=== PATIENT | female | born 1935 | race American Indian/Alaskan Native ===

== ENCOUNTER 2017-10-04 10:31 | Inpatient (IN) | payer MEDICAID, OTHER ==
[2017-10-04] MEDS ORDERED: MORPHINE IV ONE (11:29)
[2017-10-04] MEDS ORDERED: ZOFRAN IV ONE (11:29)
[2017-10-04] MEDS ORDERED: NACL 0.9% 1000 ML 1,000 ML IV ONE (11:30)
[2017-10-04 12:11] LABS: Basophils % (Auto) 0.1 % (0.0-1.8); Hematocrit 36.3 % (30.3-42.9); Hemoglobin 11.9 gm/dl (10.1-14.3); Lymphocytes # (Auto) 1.4 K/mm3 (1.2-5.4); Mean Corpuscular HGB Conc 33 % (30-34); Mean Corpuscular Hemoglobin 31 pg (28-32); Mean Corpuscular Volume 94 fl (79-97); Monocytes # (Auto) 0.8 K/mm3 (0.0-0.8); Monocytes % (Auto) 7.5 % (0.0-7.3); Platelet Count 233 K/mm3 (140-440); Red Blood Count 3.87 M/mm3 (3.65-5.03); Red Cell Distribution Width 13.6 % (13.2-15.2)
[2017-10-04 12:21] LABS: INR 1.04 (0.87-1.13)
[2017-10-04 12:22] LABS: Partial Thromboplastin Time 25.1 Sec. (24.2-36.6)
[2017-10-04 12:25] LABS: Alanine Aminotransferase 12 units/L (7-56); Albumin 3.8 g/dL (3.9-5); BUN/Creatinine Ratio 20; Bilirubin,Direct 0.2 mg/dL (0-0.2); Blood Urea Nitrogen 14 mg/dL (7-17); Calcium 8.9 mg/dL (8.4-10.2); Hemolysis Index 7
--- NOTE | 2017-10-04 13:19 | XRay Report ---
Portable chest: Hypertension. There is a calcified nodule in the left lower lobe. Mildly increased interstitial markings are noted throughout both lungs. The aorta is tortuous. The heart is normal in size. No vascular congestion. No prior exam for comparison. Impression: Chronic changes. No acute findings. Right hip: Fall, pain. There is an intratrochanteric fracture with scattered bony fragments and increased angulation. The femoral head is well-positioned. No underlying defect identified. Impression: Fractured right femur.
--- NOTE | 2017-10-04 14:28 | Emergency Department Report ---
ED General Adult HPI - General Chief complaint: Fall Stated complaint: FALL Time Seen by Provider: 10/04/17 11:07 Source: patient, family Mode of arrival: Wheelchair Limitations: Language Barrier - History of Present Illness Initial comments: 82-year-old female with missed step in her bedroom yesterday. She was unable to weight-bear today so her family brought her for evaluation. She is complaining of pain in the right hip area. She's had no prior hip surgery. As far as I can tell this was a mechanical ground-level fall. -: Gradual, days(s) Location: right, lower extremity Quality: aching Consistency: intermittent Improves with: none Worsens with: movement Associated Symptoms: denies other symptoms - Related Data Home Medications Medication Instructions Recorded Confirmed Last Taken No Known Home Medications [No 10/04/17 10/04/17 Unknown Reported Home Medications] Allergies Allergy/AdvReac Type Severity Reaction Status Date / Time No Known Allergies Allergy Verified 10/04/17 10:38 ED Review of Systems ROS: Stated complaint: FALL Other details as noted in HPI Comment: All other systems reviewed and negative (Limited secondary to language age and condition. Family does not refer any other interceding symptoms) ED Past Medical Hx - Past Medical History Additional medical history: circulation - Social History Smoking Status: Never Smoker Substance Use Type: None - Medications Home Medications: Home Medications Medication Instructions Recorded Confirmed Last Taken Type No Known Home Medications [No 10/04/17 10/04/17 Unknown History Reported Home Medications] ED Physical Exam - General Limitations: Language Barrier (family translates) General appearance: alert, in no apparent distress - Head Head exam: Present: atraumatic, normocephalic - Eye Eye exam: Present: normal appearance, PERRL, EOMI. Absent: scleral icterus - ENT ENT exam: Present: mucous membranes moist - Neck Neck exam: Present: normal inspection. Absent: tenderness, meningismus - Respiratory Respiratory exam: Present: normal lung sounds bilaterally. Absent: respiratory distress - Cardiovascular Cardiovascular Exam: Present: regular rate, normal rhythm. Absent: systolic murmur, diastolic murmur, rubs, gallop - GI/Abdominal GI/Abdominal exam: Present: soft, normal bowel sounds. Absent: distended, tenderness, guarding, rebound, rigid - Extremities Exam Extremities exam: Present: tenderness (right hip shortening and external rotation of the leg noted. No other deformity.) - Back Exam Back exam: Present: normal inspection - Neurological Exam Neurological exam: Present: alert, oriented X3, CN II-XII intact. Absent: motor sensory deficit - Psychiatric Psychiatric exam: Present: normal affect, normal mood - Skin Skin exam: Present: warm, dry, intact, normal color. Absent: rash ED Course Vital Signs 10/04/17 10/04/17 10/04/17 10:39 10:46 11:00 Temperature 98.3 F Pulse Rate 80 72 Respiratory 16 17 Rate Blood Pressure 143/73 142/58 O2 Sat by Pulse 100 100 97 Oximetry 10/04/17 10/04/17 10/04/17 11:31 12:00 12:30 Temperature Pulse Rate 72 72 69 Respiratory 17 16 15 Rate Blood Pressure 138/49 138/58 130/56 O2 Sat by Pulse 99 98 95 Oximetry 10/04/17 10/04/17 10/04/17 13:00 13:30 14:00 Temperature Pulse Rate 67 73 77 Respiratory 19 15 17 Rate Blood Pressure 132/52 127/54 136/58 O2 Sat by Pulse 98 96 94 Oximetry - Reevaluation(s) Reevaluation #1: The patient was admitted by hospitalist Dr. Briones and has been seen by the orthopedist Dr. Seay. 10/04/17 14:39 Reevaluation #2: Potassium was 5.3. I'm going to give the patient IV fluids and repeat. Further care per hospitalist. 10/04/17 14:42 ED Medical Decision Making - Lab Data Result diagrams: 10/04/17 11:39 10/04/17 11:39 Laboratory Results - last 24 hr 10/04/17 10/04/17 10/04/17 11:39 11:39 11:39 WBC 11.3 H RBC 3.87 Hgb 11.9 Hct 36.3 MCV 94 MCH 31 MCHC 33 RDW 13.6 Plt Count 233 Lymph % (Auto) 12.0 L Harney % (Auto) 7.5 H Eos % (Auto) 0.0 Baso % (Auto) 0.1 Lymph # 1.4 Harney # 0.8 Eos # 0.0 Baso # 0.0 Seg Neutrophils % 80.4 H Seg Neutrophils # 9.1 H PT 14.1 INR 1.04 APTT 25.1 Sodium 133 L Potassium 5.3 H Chloride 95.7 L Carbon Dioxide 24 Anion Gap 19 BUN 14 Creatinine 0.7 Estimated GFR > 60 BUN/Creatinine Ratio 20 Glucose 273 H Calcium 8.9 Total Bilirubin 0.90 Direct Bilirubin 0.2 Indirect Bilirubin 0.7 AST 16 ALT 12 Alkaline Phosphatase 52 NT-Pro-B Natriuret Pep 84.05 Total Protein 6.8 Albumin 3.8 L Albumin/Globulin Ratio 1.3 Blood Type Antibody Screen 10/04/17 11:39 WBC RBC Hgb Hct MCV MCH MCHC RDW Plt Count Lymph % (Auto) Harney % (Auto) Eos % (Auto) Baso % (Auto) Lymph # Harney # Eos # Baso # Seg Neutrophils % Seg Neutrophils # PT INR APTT Sodium Potassium Chloride Carbon Dioxide Anion Gap BUN Creatinine Estimated GFR BUN/Creatinine Ratio Glucose Calcium Total Bilirubin Direct Bilirubin Indirect Bilirubin AST ALT Alkaline Phosphatase NT-Pro-B Natriuret Pep Total Protein Albumin Albumin/Globulin Ratio Blood Type A POSITIVE Antibody Screen Negative - Radiology Data Radiology results: report reviewed (displaced intertrochanteric hip fracture on right, chest x-ray process) Critical care attestation.: If time is entered above; I have spent that time in minutes in the direct care of this critically ill patient, excluding procedure time. ED Disposition Clinical Impression: Hyperkalemia Intertrochanteric fracture of right hip Qualifiers: Encounter type: initial encounter Fracture type: closed Fracture alignment: displaced Qualified Code(s): S72.141A - Displaced intertrochanteric fracture of right femur, initial encounter for closed fracture Disposition: 09 OP ADMIT IP TO THIS HOSP Is pt being admited?: Yes Does the pt Need Aspirin: Yes Condition: Stable Time of Disposition: 14:43
--- NOTE | 2017-10-04 15:39 | Consultation ---
History of Present Illness - [facility] Consult date: 10/04/17 Consult reason: fracture History of present illness: 82-year-old female who complains of right hip pain after a fall at home yesterday patient states she was in the bedroom and had a misstep causing her to fall onto her right lower extremity, currently patient states she is unable to put any weight onto her right leg she was brought to the emergency room by her family x-rays were taken revealing a displaced right intertrochanteric hip fracture. There are no other complaints noted Medications and Allergies Allergies Allergy/AdvReac Type Severity Reaction Status Date / Time No Known Allergies Allergy Verified 10/04/17 10:38 Home Medications Medication Instructions Recorded Confirmed Last Taken Type No Known Home Medications [No 10/04/17 10/04/17 Unknown History Reported Home Medications] Active Meds: Active Medications Aspirin (Baby Aspirin) 81 mg PO ONCE ONE Stop: 10/05/17 14:44 Sodium Chloride (Nacl 0.9% 1000 Ml) 1,000 mls @ 125 mls/hr IV ONCE ONE Stop: 10/04/17 19:29 Physical Examination - Physical exam Narrative exam: On physical examination the patient was noted to have moderate swelling in the proximal thigh she was tender on palpation passer range of motion is diminished secondary to pain there is apparent shortening with external rotation of the extremity there is good capillary refill distal neurovascular was intact Plain x-rays from the emergency room were reviewed by me and show a displaced right intertrochanteric hip fracture. Eyes: PERRL ENT: Positive: clear oral mucosa Respiratory effort: normal Respiratory: bilateral: CTA Rhythm: regular Heart Sounds: Positive: S1 & S2 General gastrointestinal: Positive: soft, non-tender, non-distended, normal bowel sounds Integumentary: clear, warm, dry Neurologic: Positive: CNII-XII intact, moves all extremities, gait normal. Negative: focal deficits - Cervical Spine Neck pain: none Tenderness with palpation: none Full ROM: yes ROM: flexion: normal ROM: extension: normal ROM: rotation right: normal ROM: rotation left: normal ROM: lateral flexion right: normal ROM: lateral flexion left: normal - Lumbar Spine Back pain: none Tenderness with palpation: none Appearance: normal Full ROM: yes ROM: flexion: normal ROM: extension: normal ROM: rotation right: normal ROM: rotation left: normal ROM: lateral flexion right: normal ROM: lateral flexion left: normal Assessment and Plan Right intertrochanteric fracture hip with displacement Recommendations I have recommended closed reduction and insertion of intramedullary nail right femur
[2017-10-04 15:53] LABS: Bilirubin,Urine NEG (Negative); Blood,Urine SM (Negative); Color,Urine Yellow (Yellow); Protein,Urine <15 mg/dL mg/dL (Negative); Urobilinogen,Urine < 2.0 mg/dL (<2.0); WBC,Urine < 1.0 /HPF (0.0-6.0)
[2017-10-04 16:07] LABS: BUN/Creatinine Ratio 18; Blood Urea Nitrogen 11 mg/dL (7-17); Calcium 8.3 mg/dL (8.4-10.2); Hemolysis Index 2
[2017-10-04] MEDS ORDERED: SODIUM CHLORIDE FLUSH SYRINGE 10 ML IV PRN (16:10)
[2017-10-04] MEDS ORDERED: DILAUDID IV PRN (16:10)
[2017-10-04] MEDS ORDERED: PERCOCET 5/325 PO PRN (16:10)
[2017-10-04] MEDS ORDERED: REGLAN IV PRN (16:10)
[2017-10-04] MEDS ORDERED: ZOFRAN IV PRN (16:10)
[2017-10-04] MEDS ORDERED: MILK OF MAGNESIA PO PRN (16:10)
[2017-10-04] MEDS ORDERED: AMBIEN PO PRN (16:10)
--- NOTE | 2017-10-04 16:10 | History and Physical Report ---
History of Present Illness Date of examination: 10/04/17 Date of admission: 10/04/17 12:24 Chief complaint: CC Pain Rt Hip History of present illness: History of Present Illness: 82-year-old female missed a step in her bedroom yesterday. She was unable to weight-bear today so her family brought her for evaluation. She is complaining of pain in the right hip area. She's had no prior hip surgery. This was a mechanical ground-level fall. Paion is .Exacerbated by minimal movement in lower extremities Past Medical History Additional medical history: circulation - Social History Smoking Status: Never Smoker Substance Use Type: None Family History no Surgical History N/a - Medications Home Medications: Home Medications Medication Instructions Recorded Confirmed Last Taken Type No Known Home Medications [No 10/04/17 10/04/17 Unknown History Reported Home Medications] Review of Systems ROS: Stated complaint: FALL Other details as noted in HPI Comment: All other systems reviewed and negative (Limited secondary to language age and condition. Family does not refer any other interceding symptoms) Medications and Allergies Allergies Allergy/AdvReac Type Severity Reaction Status Date / Time No Known Allergies Allergy Verified 10/04/17 10:38 Home Medications Medication Instructions Recorded Confirmed Last Taken Type Metformin HCl 500 mg PO BID 10/04/17 10/04/17 Unknown History Simvastatin 20 mg PO DAILY 10/04/17 10/04/17 Unknown History Active Meds: Active Medications Aspirin (Baby Aspirin) 81 mg PO ONCE ONE Stop: 10/05/17 14:44 Sodium Chloride (Nacl 0.9% 1000 Ml) 1,000 mls @ 125 mls/hr IV ONCE ONE Stop: 10/04/17 19:29 Exam - Constitutional Vitals: Temp Pulse Resp BP Pulse Ox 98.3 F 77 17 136/58 94 10/04/17 10:39 10/04/17 14:00 10/04/17 14:00 10/04/17 14:00 10/04/17 14:00 General appearance: Present: mild distress, well-nourished - EENT Eyes: Present: PERRL ENT: hearing intact, clear oral mucosa - Neck Neck: Present: supple, normal ROM - Respiratory Respiratory effort: normal Respiratory: bilateral: CTA - Cardiovascular Heart rate: 80 Rhythm: regular Heart Sounds: Present: S1 & S2. Absent: rub, click - Extremities Extremities: no ischemia, pulses intact, pulses symmetrical, No edema, abnormal Extremity abnormal: other (RLE Abducted and externally rotated) Peripheral Pulses: within normal limits - Abdominal General gastrointestinal: Present: soft, non-tender, non-distended, normal bowel sounds Female genitourinary: Present: normal - Rectal Rectal Exam: deferred - Integumentary Integumentary: Present: clear, warm, dry - Musculoskeletal Musculoskeletal: gait normal, strength equal bilaterally - Psychiatric Psychiatric: appropriate mood/affect, intact judgment & insight - Neurologic Neurologic: CNII-XII intact, moves all extremities Results - Labs CBC & Chem 7: 10/04/17 11:39 10/04/17 15:03 Labs: Laboratory Last Values WBC 11.3 K/mm3 (4.5-11.0) H 10/04/17 11:39 RBC 3.87 M/mm3 (3.65-5.03) 10/04/17 11:39 Hgb 11.9 gm/dl (10.1-14.3) 10/04/17 11:39 Hct 36.3 % (30.3-42.9) 10/04/17 11:39 MCV 94 fl (79-97) 10/04/17 11:39 MCH 31 pg (28-32) 10/04/17 11:39 MCHC 33 % (30-34) 10/04/17 11:39 RDW 13.6 % (13.2-15.2) 10/04/17 11:39 Plt Count 233 K/mm3 (140-440) 10/04/17 11:39 Lymph % (Auto) 12.0 % (13.4-35.0) L 10/04/17 11:39 [place] % (Auto) 7.5 % (0.0-7.3) H 10/04/17 11:39 Eos % (Auto) 0.0 % (0.0-4.3) 10/04/17 11:39 Baso % (Auto) 0.1 % (0.0-1.8) 10/04/17 11:39 Lymph # 1.4 K/mm3 (1.2-5.4) 10/04/17 11:39 [place] # 0.8 K/mm3 (0.0-0.8) 10/04/17 11:39 Eos # 0.0 K/mm3 (0.0-0.4) 10/04/17 11:39 Baso # 0.0 K/mm3 (0.0-0.1) 10/04/17 11:39 Seg Neutrophils % 80.4 % (40.0-70.0) H 10/04/17 11:39 Seg Neutrophils # 9.1 K/mm3 (1.8-7.7) H 10/04/17 11:39 PT 14.1 Sec. (12.2-14.9) 10/04/17 11:39 INR 1.04 (0.87-1.13) 10/04/17 11:39 APTT 25.1 Sec. (24.2-36.6) 10/04/17 11:39 Sodium 135 mmol/L (137-145) L 10/04/17 15:03 Potassium 4.7 mmol/L (3.6-5.0) 10/04/17 15:03 Chloride 96.8 mmol/L (98-107) L 10/04/17 15:03 Carbon Dioxide 23 mmol/L (22-30) 10/04/17 15:03 Anion Gap 20 mmol/L 10/04/17 15:03 BUN 11 mg/dL (7-17) 10/04/17 15:03 Creatinine 0.6 mg/dL (0.7-1.2) L 10/04/17 15:03 Estimated GFR > 60 ml/min 10/04/17 15:03 BUN/Creatinine Ratio 18 % 10/04/17 15:03 Glucose 211 mg/dL (65-100) H 10/04/17 15:03 Calcium 8.3 mg/dL (8.4-10.2) L 10/04/17 15:03 Total Bilirubin 0.90 mg/dL (0.1-1.2) 10/04/17 11:39 Direct Bilirubin 0.2 mg/dL (0-0.2) 10/04/17 11:39 Indirect Bilirubin 0.7 mg/dL 10/04/17 11:39 AST 16 units/L (5-40) 10/04/17 11:39 ALT 12 units/L (7-56) 10/04/17 11:39 Alkaline Phosphatase 52 units/L (35-129) 10/04/17 11:39 NT-Pro-B Natriuret Pep 84.05 pg/mL (0-900) 10/04/17 11:39 Total Protein 6.8 g/dL (6.3-8.2) 10/04/17 11:39 Albumin 3.8 g/dL (3.9-5) L 10/04/17 11:39 Albumin/Globulin Ratio 1.3 % 10/04/17 11:39 Urine Color Yellow (Yellow) 10/04/17 15:08 Urine Turbidity Clear (Clear) 10/04/17 15:08 Urine pH 7.0 (5.0-7.0) 10/04/17 15:08 Ur Specific [place] 1.009 (1.003-1.030) 10/04/17 15:08 Urine Protein <15 mg/dl mg/dL (Negative) 10/04/17 15:08 Urine Glucose (UA) 150 mg/dL (Negative) 10/04/17 15:08 Urine Ketones 20 mg/dL (Negative) 10/04/17 15:08 Urine Blood Sm (Negative) 10/04/17 15:08 Urine Nitrite Neg (Negative) 10/04/17 15:08 Urine Bilirubin Neg (Negative) 10/04/17 15:08 Urine Urobilinogen < 2.0 mg/dL (<2.0) 10/04/17 15:08 Ur Leukocyte Esterase Tr (Negative) 10/04/17 15:08 Urine WBC (Auto) < 1.0 /HPF (0.0-6.0) 10/04/17 15:08 Urine RBC (Auto) 1.0 /HPF (0.0-6.0) 10/04/17 15:08 Blood Type A POSITIVE 10/04/17 11:39 Antibody Screen Negative 10/04/17 11:39 Short CBC 10/04/17 Range/Units 11:39 WBC 11.3 H (4.5-11.0) K/mm3 Hgb 11.9 (10.1-14.3) gm/dl Hct 36.3 (30.3-42.9) % Plt Count 233 (140-440) K/mm3 BMP 10/04/17 10/04/17 11:39 15:03 Sodium 133 L 135 L Potassium 5.3 H 4.7 Chloride 95.7 L 96.8 L Carbon Dioxide 24 23 BUN 14 11 Creatinine 0.7 0.6 L Glucose 273 H 211 H Calcium 8.9 8.3 L Liver Function 10/04/17 Range/Units 11:39 Total Bilirubin 0.90 (0.1-1.2) mg/dL Direct Bilirubin 0.2 (0-0.2) mg/dL AST 16 (5-40) units/L ALT 12 (7-56) units/L Alkaline Phosphatase 52 (35-129) units/L Albumin 3.8 L (3.9-5) g/dL Urine 10/04/17 Range/Units 15:08 Urine Color Yellow (Yellow) Urine pH 7.0 (5.0-7.0) Ur Specific [place] 1.009 (1.003-1.030) Urine Protein <15 mg/dl (Negative) mg/dL Urine Glucose (UA) 150 (Negative) mg/dL - Imaging and Cardiology EKG: report reviewed Chest x-ray: report reviewed Imaging and Cardiology: Rt Hip Xray There is an intratrochanteric fracture with scattered bony fragments and increased angulation. The femoral head is well-positioned. No underlying defect identified. Impression: Fractured right femur Assessment and Plan Advance Directives: Yes (Full code) Plan of care discussed with patient/family: Yes - Patient Problems (1) Intertrochanteric fracture of right hip Current Visit: Yes Status: Acute Qualifiers: Encounter type: initial encounter Fracture type: closed Fracture alignment: displaced Qualified Code(s): S72.141A - Displaced intertrochanteric fracture of right femur, initial encounter for closed fracture Plan to address problem: ORIF by Dr Seay tomorrow (2) Hyperkalemia Current Visit: Yes Status: Acute Plan to address problem: Corrected (3) Hyponatremia Current Visit: Yes Status: Acute Plan to address problem: Mild.Should correct with IV NS (4) New onset type 2 diabetes mellitus Current Visit: Yes Status: Acute Plan to address problem: No history of Diabetes. A1c 8.0 Coverage for now Glimepride 1 mg po qd initiated (5) DVT prophylaxis Current Visit: Yes Status: Acute Plan to address problem: On SCD's
[2017-10-04] MEDS: PEPCID IV SCH (18:31)
[2017-10-04] MEDS: MORPHINE IV PRN (21:12)
[2017-10-04] MEDS ORDERED: PEPCID IV SCH (22:00)
[2017-10-05] MEDS: SODIUM CHLORIDE FLUSH SYRINGE 10 ML IV SCH ×4 (00:04→23:03)
[2017-10-05] MEDS: MORPHINE IV PRN (05:21)
[2017-10-05] MEDS: PEPCID IV SCH ×2 (08:28→09:48)
[2017-10-05] MEDS: HumaLOG SUB-Q SCH ×4 (08:29→23:31)
[2017-10-05] MEDS: NACL 0.9% 1000 ML 1,000 ML IV SCH ×2 (09:59→18:45)
[2017-10-05] MEDS ORDERED: DIPRIVAN 10 MG/ML IV ONE (11:53)
[2017-10-05] MEDS ORDERED: SUBLIMAZE ONE (11:59)
[2017-10-05] MEDS ORDERED: MORPHINE ONE (12:03)
[2017-10-05] MEDS ORDERED: MARCAINE 0.5% 0 ML INFILTRATI ONE (12:03)
[2017-10-05] MEDS ORDERED: TORADOL ONE (12:03)
[2017-10-05] MEDS ORDERED: NACL 0.9% 0 ML ONE (12:05)
[2017-10-05] MEDS ORDERED: NACL 0.9% IR ONE (12:47)
[2017-10-05] MEDS ORDERED: NARCAN 0.4 MG/1 ML IV PRN (12:52)
[2017-10-05] MEDS ORDERED: DILAUDID IV PRN (12:52)
[2017-10-05] MEDS ORDERED: DEMEROL IV PRN (12:52)
--- NOTE | 2017-10-05 12:55 | Anesthesia Consultation ---
Anesthesia Consult and Med Hx Date of service: 10/05/17 - Airway Anesthetic Teeth Evaluation: Poor, Chipped ROM Head & Neck: Adequate Mental/Hyoid Distance: Adequate Mallampati Class: Class I Intubation Access Assessment: Good - Pulmonary Exam CTA: Yes - Cardiac Exam Cardiac Exam: RRR - Pre-Operative Health Status ASA Pre-Surgery Classification: ASA2 Proposed Anesthetic Plan: General - Pre-Anesthesia Comment Pre-Anesthesia Comments: Patient tolerates >6 METS. works on [employer]. No chest pain or SOB. fell after losing footing at home. No syncopal on central events precipitated event. No cold or flu. No h/o N/V after anesthesia. No h/ o anesthetic complications - Pulmonary Hx Smoking: No Hx Asthma: No Hx Respiratory Symptoms: No SOB: No COPD: No Home Oxygen Therapy: No - Cardiovascular System Hx Hypertension: Yes Hx Coronary Artery Disease: No Hx Heart Attack/AMI: No Hx Angina: No Hx Pacemaker: No Hx Internal Defibrillator: No - Central Nervous System Hx Neuromuscular Disorder: No Hx Seizures: No CVA: No - Gastrointestinal Hx Gastroesophageal Reflux Disease: No - Endocrine Hx Renal Disease: No Hx Non-Insulin Dependent Diabetes: Yes
--- NOTE | 2017-10-05 12:55 | Anesthesia Day of Surgery ---
Anesthesia Day of Surgery - Day of Surgery Patient Examined: Yes Patient H&P Reviewed: Yes Patient is NPO: Yes
[2017-10-05] MEDS ORDERED: ZEMURON IV ONE (14:20)
[2017-10-05] MEDS ORDERED: ROBINUL ONE (14:20)
[2017-10-05] MEDS ORDERED: NEOSTIGMINE ONE (14:20)
[2017-10-05] MEDS ORDERED: XYLOCAINE MPF 2% ONE (14:20)
[2017-10-05] MEDS ORDERED: ZOFRAN ONE (14:20)
[2017-10-05] MEDS ORDERED: BABY ASPIRIN PO ONE (14:43)
--- NOTE | 2017-10-05 14:48 | Procedure Note ---
Date of procedure: 10/05/17 Pre-op diagnosis: displaced right intertrochanteric hip fracture Post-op diagnosis: same Procedure: Closed reduction and insertion of intramedullary nail right femur Procedure The patient was brought to the operating room on a hospital bed she was then intubated and transferred to the Zeina table in the supine position the right lower extremity was placed in longitudinal traction. The hip fracture site was reduced in both the AP and lateral planes using C-arm fluoroscope. Next the right hip and thigh were prepped and draped in the usual sterile fashion. A timeout procedure was done to identify the patient and the correct operative site. An incision was made along the proximal aspect of the right femur this was taken down sharply through skin and subcutaneous using a Garcia elevator and digital palpation the greater tuberosity was palpated A large a was used to create our entry portal again using C-arm and the entry site was visualized next a guide pin was inserted into the proximal medullary canal was then overreamed followed by insertion of a ball-tip guidewire. Measuring the length of our intramedullary yakov a 360 mm length by 11 mm diameter yakov was chosen and this was followed by reaming of the proximal intramedullary canals next the intramedullary yakov nail was inserted in antegrade fashion down the proximal femur under sterile C-arm visualization. Using the targeting device the helical blade was inserted through a secondary lateral incision measuring the length a 90 mm helical blade was chosen and inserted under C-arm direction. A distal interlocking screw was placed which measured 42 mm in length again C-arm was used to inspect the position of all hardware and the fracture was reduced and the nail and screws were good alignment longest the wound was copiously irrigated and was closed in a standard routine fashion patient tolerated the procedure there were no complications she was sent to postanesthesia recovery Anesthesia: ENRICO Surgeon: MONICA GOVEA Courtroom Reporter: BARBARA ENRIQUE Estimated blood loss: 50-100ml Pathology: none Condition: stable Disposition: PACU
[2017-10-05] MEDS: DILAUDID IV PRN ×2 (14:56→15:50)
[2017-10-05] MEDS ORDERED: SODIUM CHLORIDE FLUSH SYRINGE 10 ML IV NR (15:00)
[2017-10-05] MEDS ORDERED: ANCEF/NS 1 GM/50 ML 1 GM/50 ML BAG IV SCH (15:00)
--- NOTE | 2017-10-05 15:00 | XRay Report ---
INTRAOPERATIVE RIGHT FEMUR RADIOGRAPHS INDICATION: Right hip fracture, post TFN of right femur. COMPARISON: 10/04/2017. FINDINGS: Intraoperative fluoroscopic guidance provided. Images demonstrate femoral medullary yakov placement. Single distal screw noted. CONCLUSION: Intraoperative fluoroscopic guidance provided, as described. Thank you for the opportunity to participate in this patient's care.
[2017-10-05] MEDS ORDERED: APRESOLINE ONE (15:05)
[2017-10-05] MEDS ORDERED: APRESOLINE IV PRN (15:12)
[2017-10-05] MEDS: ceFAZolin 1 GM in NACL 0.9% 20 ML IV SCH ×2 (16:28→23:04)
--- NOTE | 2017-10-05 17:04 | Progress Note ---
Assessment and Plan Assessment and plan: 82-year-old female was admitted for right hip fracture. (1) Intertrochanteric fracture of right hip Status post ORIF by Dr Seay today (2) Hyperkalemia Corrected (3) Hyponatremia Improved, will continue NS (4) New onset type 2 diabetes mellitus No history of Diabetes. A1c 8.0 Coverage for now Glimepride 1 mg po qd initiated (5) DVT prophylaxis On SCD's History Interval history: Patient seen and examined with family at bedside. She is very drowsy status post surgery. Labs and nursing notes reviewed. Hospitalist Physical - Constitutional Vitals: Temp Pulse Resp BP Pulse Ox 97.8 F 93 H 18 143/59 97 10/05/17 16:00 10/05/17 16:00 10/05/17 16:00 10/05/17 16:00 10/05/17 16:00 General appearance: Present: no acute distress, well-nourished - EENT Eyes: Present: PERRL, EOM intact ENT: hearing intact, clear oral mucosa - Neck Neck: Present: supple, normal ROM - Respiratory Respiratory effort: normal Respiratory: bilateral: CTA - Cardiovascular Rhythm: regular Heart Sounds: Present: S1 & S2 - Extremities Extremities: no ischemia, No edema - Abdominal General gastrointestinal: soft, non-tender, non-distended - Integumentary Integumentary: Present: clear, warm, dry - Psychiatric Psychiatric: appropriate mood/affect, cooperative - Neurologic Neurologic: CNII-XII intact, moves all extremities - Allied Health Allied health notes reviewed: nursing Results - Labs CBC & Chem 7: 10/04/17 11:39 10/04/17 15:03 Labs: Laboratory Last Values WBC 11.3 K/mm3 (4.5-11.0) H 10/04/17 11:39 RBC 3.87 M/mm3 (3.65-5.03) 10/04/17 11:39 Hgb 11.9 gm/dl (10.1-14.3) 10/04/17 11:39 Hct 36.3 % (30.3-42.9) 10/04/17 11:39 MCV 94 fl (79-97) 10/04/17 11:39 MCH 31 pg (28-32) 10/04/17 11:39 MCHC 33 % (30-34) 10/04/17 11:39 RDW 13.6 % (13.2-15.2) 10/04/17 11:39 Plt Count 233 K/mm3 (140-440) 10/04/17 11:39 Lymph % (Auto) 12.0 % (13.4-35.0) L 10/04/17 11:39 [place] % (Auto) 7.5 % (0.0-7.3) H 10/04/17 11:39 Eos % (Auto) 0.0 % (0.0-4.3) 10/04/17 11:39 Baso % (Auto) 0.1 % (0.0-1.8) 10/04/17 11:39 Lymph # 1.4 K/mm3 (1.2-5.4) 10/04/17 11:39 [place] # 0.8 K/mm3 (0.0-0.8) 10/04/17 11:39 Eos # 0.0 K/mm3 (0.0-0.4) 10/04/17 11:39 Baso # 0.0 K/mm3 (0.0-0.1) 10/04/17 11:39 Seg Neutrophils % 80.4 % (40.0-70.0) H 10/04/17 11:39 Seg Neutrophils # 9.1 K/mm3 (1.8-7.7) H 10/04/17 11:39 PT 14.1 Sec. (12.2-14.9) 10/04/17 11:39 INR 1.04 (0.87-1.13) 10/04/17 11:39 APTT 25.1 Sec. (24.2-36.6) 10/04/17 11:39 Sodium 135 mmol/L (137-145) L 10/04/17 15:03 Potassium 4.7 mmol/L (3.6-5.0) 10/04/17 15:03 Chloride 96.8 mmol/L (98-107) L 10/04/17 15:03 Carbon Dioxide 23 mmol/L (22-30) 10/04/17 15:03 Anion Gap 20 mmol/L 10/04/17 15:03 BUN 11 mg/dL (7-17) 10/04/17 15:03 Creatinine 0.6 mg/dL (0.7-1.2) L 10/04/17 15:03 Estimated GFR > 60 ml/min 10/04/17 15:03 BUN/Creatinine Ratio 18 % 10/04/17 15:03 Glucose 211 mg/dL (65-100) H 10/04/17 15:03 POC Glucose 173 (70-105) H 10/05/17 12:25 Hemoglobin A1c 8.0 % (4-6) H 10/04/17 11:39 Calcium 8.3 mg/dL (8.4-10.2) L 10/04/17 15:03 Total Bilirubin 0.90 mg/dL (0.1-1.2) 10/04/17 11:39 Direct Bilirubin 0.2 mg/dL (0-0.2) 10/04/17 11:39 Indirect Bilirubin 0.7 mg/dL 10/04/17 11:39 AST 16 units/L (5-40) 10/04/17 11:39 ALT 12 units/L (7-56) 10/04/17 11:39 Alkaline Phosphatase 52 units/L (35-129) 10/04/17 11:39 NT-Pro-B Natriuret Pep 84.05 pg/mL (0-900) 10/04/17 11:39 Total Protein 6.8 g/dL (6.3-8.2) 10/04/17 11:39 Albumin 3.8 g/dL (3.9-5) L 10/04/17 11:39 Albumin/Globulin Ratio 1.3 % 10/04/17 11:39 Urine Color Yellow (Yellow) 10/04/17 15:08 Urine Turbidity Clear (Clear) 10/04/17 15:08 Urine pH 7.0 (5.0-7.0) 10/04/17 15:08 Ur Specific [place] 1.009 (1.003-1.030) 10/04/17 15:08 Urine Protein <15 mg/dl mg/dL (Negative) 10/04/17 15:08 Urine Glucose (UA) 150 mg/dL (Negative) 10/04/17 15:08 Urine Ketones 20 mg/dL (Negative) 10/04/17 15:08 Urine Blood Sm (Negative) 10/04/17 15:08 Urine Nitrite Neg (Negative) 10/04/17 15:08 Urine Bilirubin Neg (Negative) 10/04/17 15:08 Urine Urobilinogen < 2.0 mg/dL (<2.0) 10/04/17 15:08 Ur Leukocyte Esterase Tr (Negative) 10/04/17 15:08 Urine WBC (Auto) < 1.0 /HPF (0.0-6.0) 10/04/17 15:08 Urine RBC (Auto) 1.0 /HPF (0.0-6.0) 10/04/17 15:08 Blood Type A POSITIVE 10/04/17 11:39 Antibody Screen Negative 10/04/17 11:39
[2017-10-05 17:10] LABS: Basophils # (Auto) 0.1 K/mm3 (0.0-0.1); Basophils % (Auto) 0.5 % (0.0-1.8); Hematocrit 33.2 % (30.3-42.9); Hemoglobin 11.1 gm/dl (10.1-14.3); Lymphocytes # (Auto) 1.1 K/mm3 (1.2-5.4); Lymphocytes % (Auto) 7.6 % (13.4-35.0); Mean Corpuscular HGB Conc 33 % (30-34); Mean Corpuscular Hemoglobin 32 pg (28-32); Mean Corpuscular Volume 94 fl (79-97); Monocytes % (Auto) 6.9 % (0.0-7.3); Platelet Count 202 K/mm3 (140-440); Red Blood Count 3.52 M/mm3 (3.65-5.03); Red Cell Distribution Width 13.9 % (13.2-15.2)
[2017-10-05 17:12] LABS: Alanine Aminotransferase 10 units/L (7-56); Albumin 3.3 g/dL (3.9-5); BUN/Creatinine Ratio 22; Blood Urea Nitrogen 13 mg/dL (7-17); Calcium 7.6 mg/dL (8.4-10.2); Hemolysis Index 1
--- NOTE | 2017-10-05 21:03 | Post Anesthesia Evaluation ---
- Post Anesthesia Evaluation Patient Participated: Yes Airway Patent: Yes Stable Respiratory Function: Yes Nausea/Vomiting: No Temp > 96.8F: Yes Pain Manageable: Yes Adequeate Hydration: Yes Anesthesia Complications: No
[2017-10-05] MEDS ORDERED: ceFAZolin 1 GM in NACL 0.9% 20 ML IV SCH (23:00)
[2017-10-06] MEDS: NACL 0.9% 1000 ML 1,000 ML IV SCH ×2 (04:41→16:14)
[2017-10-06] MEDS: HumaLOG SUB-Q SCH ×3 (05:57→23:01)
[2017-10-06] MEDS: AMARYL PO SCH (09:00)
--- NOTE | 2017-10-06 09:05 | Progress Note ---
<NIGEL PENDLETON - Last Filed: 10/06/17 14:54> Assessment and Plan Assessment and plan: 82-year-old female was admitted for right hip fracture. (1) Intertrochanteric fracture of right hip Status post ORIF by Dr Seay today, patient is recovering well, Will continue PT (2) Hyperkalemia Corrected (3) Hyponatremia Improved, will continue NS (4) New onset type 2 diabetes mellitus A1c 8.0, SSI, ADA diet, Glimepride 1 mg po qd initiated (5) DVT prophylaxis On SCD's History Interval history: Patient seen and examined with son at bedside. No complaints at this time. Labs and nursing notes reviewed. Hospitalist Physical - Constitutional Vitals: Temp Pulse Resp BP Pulse Ox 99.1 F 85 18 145/63 97 10/06/17 01:25 10/06/17 04:48 10/06/17 04:48 10/06/17 04:48 10/06/17 01:25 General appearance: Present: no acute distress, well-nourished - EENT Eyes: Present: PERRL, EOM intact ENT: hearing intact, clear oral mucosa - Neck Neck: Present: supple, normal ROM - Respiratory Respiratory effort: normal Respiratory: bilateral: CTA - Cardiovascular Rhythm: regular Heart Sounds: Present: S1 & S2 - Extremities Extremities: no ischemia, No edema - Abdominal General gastrointestinal: soft, non-tender, non-distended - Integumentary Integumentary: Present: clear, warm, dry - Psychiatric Psychiatric: appropriate mood/affect, cooperative - Neurologic Neurologic: CNII-XII intact, moves all extremities Results - Labs CBC & Chem 7: 10/05/17 16:40 10/05/17 16:40 Labs: Laboratory Last Values WBC 14.5 K/mm3 (4.5-11.0) H 10/05/17 16:40 RBC 3.52 M/mm3 (3.65-5.03) L 10/05/17 16:40 Hgb 11.1 gm/dl (10.1-14.3) 10/05/17 16:40 Hct 33.2 % (30.3-42.9) 10/05/17 16:40 MCV 94 fl (79-97) 10/05/17 16:40 MCH 32 pg (28-32) 10/05/17 16:40 MCHC 33 % (30-34) 10/05/17 16:40 RDW 13.9 % (13.2-15.2) 10/05/17 16:40 Plt Count 202 K/mm3 (140-440) 10/05/17 16:40 Lymph % (Auto) 7.6 % (13.4-35.0) L 10/05/17 16:40 [place] % (Auto) 6.9 % (0.0-7.3) 10/05/17 16:40 Eos % (Auto) 0.0 % (0.0-4.3) 10/05/17 16:40 Baso % (Auto) 0.5 % (0.0-1.8) 10/05/17 16:40 Lymph # 1.1 K/mm3 (1.2-5.4) L 10/05/17 16:40 [place] # 1.0 K/mm3 (0.0-0.8) H 10/05/17 16:40 Eos # 0.0 K/mm3 (0.0-0.4) 10/05/17 16:40 Baso # 0.1 K/mm3 (0.0-0.1) 10/05/17 16:40 Seg Neutrophils % 85.0 % (40.0-70.0) H 10/05/17 16:40 Seg Neutrophils # 12.3 K/mm3 (1.8-7.7) H 10/05/17 16:40 PT 14.1 Sec. (12.2-14.9) 10/04/17 11:39 INR 1.04 (0.87-1.13) 10/04/17 11:39 APTT 25.1 Sec. (24.2-36.6) 10/04/17 11:39 Sodium 138 mmol/L (137-145) 10/05/17 16:40 Potassium 4.2 mmol/L (3.6-5.0) 10/05/17 16:40 Chloride 100.0 mmol/L (98-107) 10/05/17 16:40 Carbon Dioxide 22 mmol/L (22-30) 10/05/17 16:40 Anion Gap 20 mmol/L 10/05/17 16:40 BUN 13 mg/dL (7-17) 10/05/17 16:40 Creatinine 0.6 mg/dL (0.7-1.2) L 10/05/17 16:40 Estimated GFR > 60 ml/min 10/05/17 16:40 BUN/Creatinine Ratio 22 % 10/05/17 16:40 Glucose 256 mg/dL (65-100) H 10/05/17 16:40 POC Glucose 149 (70-105) H 10/06/17 07:28 Hemoglobin A1c 8.0 % (4-6) H 10/04/17 11:39 Calcium 7.6 mg/dL (8.4-10.2) L 10/05/17 16:40 Total Bilirubin 0.50 mg/dL (0.1-1.2) 10/05/17 16:40 Direct Bilirubin 0.2 mg/dL (0-0.2) 10/04/17 11:39 Indirect Bilirubin 0.7 mg/dL 10/04/17 11:39 AST 21 units/L (5-40) 10/05/17 16:40 ALT 10 units/L (7-56) 10/05/17 16:40 Alkaline Phosphatase 49 units/L (35-129) 10/05/17 16:40 NT-Pro-B Natriuret Pep 84.05 pg/mL (0-900) 10/04/17 11:39 Total Protein 6.0 g/dL (6.3-8.2) L 10/05/17 16:40 Albumin 3.3 g/dL (3.9-5) L 10/05/17 16:40 Albumin/Globulin Ratio 1.2 % 10/05/17 16:40 Urine Color Yellow (Yellow) 10/04/17 15:08 Urine Turbidity Clear (Clear) 10/04/17 15:08 Urine pH 7.0 (5.0-7.0) 10/04/17 15:08 Ur Specific [place] 1.009 (1.003-1.030) 10/04/17 15:08 Urine Protein <15 mg/dl mg/dL (Negative) 10/04/17 15:08 Urine Glucose (UA) 150 mg/dL (Negative) 10/04/17 15:08 Urine Ketones 20 mg/dL (Negative) 10/04/17 15:08 Urine Blood Sm (Negative) 10/04/17 15:08 Urine Nitrite Neg (Negative) 10/04/17 15:08 Urine Bilirubin Neg (Negative) 10/04/17 15:08 Urine Urobilinogen < 2.0 mg/dL (<2.0) 10/04/17 15:08 Ur Leukocyte Esterase Tr (Negative) 10/04/17 15:08 Urine WBC (Auto) < 1.0 /HPF (0.0-6.0) 10/04/17 15:08 Urine RBC (Auto) 1.0 /HPF (0.0-6.0) 10/04/17 15:08 Blood Type A POSITIVE 10/04/17 11:39 Antibody Screen Negative 10/04/17 11:39 <VASU TAVAREZ M - Last Filed: 10/06/17 15:39> Assessment and Plan Assessment and plan: I saw and evaluated the patient. I agree with the findings and the plan of care as documented in the Nurse Practitioner's~note, with the following corrections and additions. ORIF was done yesterday. Hospitalist Physical - Constitutional Vitals: Temp Pulse Resp BP Pulse Ox 100.3 F H 88 18 111/38 95 10/06/17 11:30 10/06/17 11:31 10/06/17 11:30 10/06/17 11:30 10/06/17 11:31 Results - Labs CBC & Chem 7: 10/05/17 16:40 10/05/17 16:40 Labs: Laboratory Last Values WBC 14.5 K/mm3 (4.5-11.0) H 10/05/17 16:40 RBC 3.52 M/mm3 (3.65-5.03) L 10/05/17 16:40 Hgb 11.1 gm/dl (10.1-14.3) 10/05/17 16:40 Hct 33.2 % (30.3-42.9) 10/05/17 16:40 MCV 94 fl (79-97) 10/05/17 16:40 MCH 32 pg (28-32) 10/05/17 16:40 MCHC 33 % (30-34) 10/05/17 16:40 RDW 13.9 % (13.2-15.2) 10/05/17 16:40 Plt Count 202 K/mm3 (140-440) 10/05/17 16:40 Lymph % (Auto) 7.6 % (13.4-35.0) L 10/05/17 16:40 [place] % (Auto) 6.9 % (0.0-7.3) 10/05/17 16:40 Eos % (Auto) 0.0 % (0.0-4.3) 10/05/17 16:40 Baso % (Auto) 0.5 % (0.0-1.8) 10/05/17 16:40 Lymph # 1.1 K/mm3 (1.2-5.4) L 10/05/17 16:40 [place] # 1.0 K/mm3 (0.0-0.8) H 10/05/17 16:40 Eos # 0.0 K/mm3 (0.0-0.4) 10/05/17 16:40 Baso # 0.1 K/mm3 (0.0-0.1) 10/05/17 16:40 Seg Neutrophils % 85.0 % (40.0-70.0) H 10/05/17 16:40 Seg Neutrophils # 12.3 K/mm3 (1.8-7.7) H 10/05/17 16:40 PT 14.1 Sec. (12.2-14.9) 10/04/17 11:39 INR 1.04 (0.87-1.13) 10/04/17 11:39 APTT 25.1 Sec. (24.2-36.6) 10/04/17 11:39 Sodium 138 mmol/L (137-145) 10/05/17 16:40 Potassium 4.2 mmol/L (3.6-5.0) 10/05/17 16:40 Chloride 100.0 mmol/L (98-107) 10/05/17 16:40 Carbon Dioxide 22 mmol/L (22-30) 10/05/17 16:40 Anion Gap 20 mmol/L 10/05/17 16:40 BUN 13 mg/dL (7-17) 10/05/17 16:40 Creatinine 0.6 mg/dL (0.7-1.2) L 10/05/17 16:40 Estimated GFR > 60 ml/min 10/05/17 16:40 BUN/Creatinine Ratio 22 % 10/05/17 16:40 Glucose 256 mg/dL (65-100) H 10/05/17 16:40 POC Glucose 266 (70-105) H 10/06/17 11:37 Hemoglobin A1c 8.0 % (4-6) H 10/04/17 11:39 Calcium 7.6 mg/dL (8.4-10.2) L 10/05/17 16:40 Total Bilirubin 0.50 mg/dL (0.1-1.2) 10/05/17 16:40 Direct Bilirubin 0.2 mg/dL (0-0.2) 10/04/17 11:39 Indirect Bilirubin 0.7 mg/dL 10/04/17 11:39 AST 21 units/L (5-40) 10/05/17 16:40 ALT 10 units/L (7-56) 10/05/17 16:40 Alkaline Phosphatase 49 units/L (35-129) 10/05/17 16:40 NT-Pro-B Natriuret Pep 84.05 pg/mL (0-900) 10/04/17 11:39 Total Protein 6.0 g/dL (6.3-8.2) L 10/05/17 16:40 Albumin 3.3 g/dL (3.9-5) L 10/05/17 16:40 Albumin/Globulin Ratio 1.2 % 10/05/17 16:40 Urine Color Yellow (Yellow) 10/04/17 15:08 Urine Turbidity Clear (Clear) 10/04/17 15:08 Urine pH 7.0 (5.0-7.0) 10/04/17 15:08 Ur Specific [place] 1.009 (1.003-1.030) 10/04/17 15:08 Urine Protein <15 mg/dl mg/dL (Negative) 10/04/17 15:08 Urine Glucose (UA) 150 mg/dL (Negative) 10/04/17 15:08 Urine Ketones 20 mg/dL (Negative) 10/04/17 15:08 Urine Blood Sm (Negative) 10/04/17 15:08 Urine Nitrite Neg (Negative) 10/04/17 15:08 Urine Bilirubin Neg (Negative) 10/04/17 15:08 Urine Urobilinogen < 2.0 mg/dL (<2.0) 10/04/17 15:08 Ur Leukocyte Esterase Tr (Negative) 10/04/17 15:08 Urine WBC (Auto) < 1.0 /HPF (0.0-6.0) 10/04/17 15:08 Urine RBC (Auto) 1.0 /HPF (0.0-6.0) 10/04/17 15:08 Blood Type A POSITIVE 10/04/17 11:39 Antibody Screen Negative 10/04/17 11:39
[2017-10-06] MEDS: PEPCID IV SCH (10:48)
[2017-10-06] MEDS: LOVENOX SUB-Q SCH (10:50)
[2017-10-06] MEDS: TYLENOL PO PRN (16:16)
[2017-10-06] MEDS: SODIUM CHLORIDE FLUSH SYRINGE 10 ML IV SCH (22:12)
--- NOTE | 2017-10-06 22:26 | Progress Note ---
Assessment and Plan right intertrochanteric hip fx, s/p intramedullary nail doing well continue PT and observation Subjective Date of service: 10/06/17 Interval history: started PT this morning, no c/o's noted Objective Vital signs: Vital Signs - 12hr 10/06/17 10/06/17 10/06/17 11:30 11:31 16:00 Temperature 100.3 F H 100.4 F H Pulse Rate 91 H 88 87 Respiratory 18 18 Rate Blood Pressure 111/38 Blood Pressure 121/49 [Right] O2 Sat by Pulse 95 95 97 Oximetry 10/06/17 22:09 Temperature 99.0 F Pulse Rate 86 Respiratory 18 Rate Blood Pressure Blood Pressure 138/63 [Right] O2 Sat by Pulse 95 Oximetry - Labs CBC & BMP: 10/05/17 16:40 10/05/17 16:40 Labs: Abnormal lab results 10/05/17 10/06/17 10/06/17 Range/Units 23:20 05:26 07:28 POC Glucose 228 H 126 H 149 H (70-105) 10/06/17 10/06/17 Range/Units 11:37 17:19 POC Glucose 266 H 166 H (70-105)
[2017-10-07] MEDS: NACL 0.9% 1000 ML 1,000 ML IV SCH (02:04)
[2017-10-07] MEDS: TYLENOL PO PRN (05:34)
[2017-10-07 06:22] LABS: Basophils % (Auto) 0.5 % (0.0-1.8); Eosinophils % (Auto) 0.6 % (0.0-4.3); Hematocrit 25.5 % (30.3-42.9); Hemoglobin 8.7 gm/dl (10.1-14.3); Lymphocytes # (Auto) 2.3 K/mm3 (1.2-5.4); Lymphocytes % (Auto) 29.5 % (13.4-35.0); Mean Corpuscular HGB Conc 34 % (30-34); Mean Corpuscular Hemoglobin 32 pg (28-32); Mean Corpuscular Volume 94 fl (79-97); Monocytes # (Auto) 0.8 K/mm3 (0.0-0.8); Monocytes % (Auto) 10.7 % (0.0-7.3); Platelet Count 170 K/mm3 (140-440); Red Blood Count 2.71 M/mm3 (3.65-5.03); Red Cell Distribution Width 13.6 % (13.2-15.2)
[2017-10-07 06:41] LABS: BUN/Creatinine Ratio 20; Blood Urea Nitrogen 10 mg/dL (7-17); Hemolysis Index 1
[2017-10-07] MEDS: HumaLOG SUB-Q SCH ×4 (09:00→22:30)
--- NOTE | 2017-10-07 10:01 | Discharge Summary ---
Providers - Providers Date of Admission: 10/04/17 12:24 Date of discharge: 10/07/17 Attending physician: VASU TAVAREZ MD 10/04/17 Consult to Case Management [CONS] Routine Services Needed at Discharge: Home Health Services Physical Therapy Notified:: ORNAMENTAL IRONWORKER 10/04/17 12:21 Consult to Physician [CONS] Urgent Comment: Consulting Provider: MONICA GOVEA Physician Instructions: Reason For Exam: R intertrochanteric hip 10/05/17 14:31 Physical Therapy Evaluation and Treat [CONS] Routine Comment: Reason For Exam: post op evaluation Weight bearing status?: Partial wt bearing Assistive devices?: Yes If so list: Walker 10/06/17 15:00 Consult to Dietitian/Nutrition [CONS] Routine Physician Instructions: Reason For Exam: Reason for Consult: Malnutrition Primary care physician: CECILIA SAUNDERS MD Hospitalization Condition: Stable Core Measure Documentation - Palliative Care Palliative Care/ Comfort Measures: Not Applicable - Core Measures Any of the following diagnoses?: none Exam - Constitutional Vitals: Temp Pulse Resp BP Pulse Ox 99.1 F 68 20 111/54 96 10/07/17 07:20 10/07/17 07:20 10/07/17 07:20 10/07/17 07:20 10/07/17 07:20 General appearance: Present: no acute distress, well-nourished - EENT Eyes: Present: PERRL ENT: hearing intact, clear oral mucosa - Neck Neck: Present: supple, normal ROM - Respiratory Respiratory effort: normal Respiratory: bilateral: CTA - Cardiovascular Heart Sounds: Present: S1 & S2. Absent: rub, click - Extremities Extremities: pulses symmetrical, No edema Peripheral Pulses: within normal limits - Abdominal General gastrointestinal: Present: soft, non-tender, non-distended, normal bowel sounds Female genitourinary: Present: normal - Integumentary Integumentary: Present: clear, warm, dry - Musculoskeletal Musculoskeletal: gait normal, strength equal bilaterally - Psychiatric Psychiatric: appropriate mood/affect, intact judgment & insight - Neurologic Neurologic: CNII-XII intact, moves all extremities Plan Activity: fall precautions Weight Bearing Status: Weight Bear as Tolerated Diet: low fat, low cholesterol, low salt, diabetic Special Instructions: physical therapy Follow up with: CECILIA SAUNDERS MD [Primary Care Provider] - 3-5 Days MONICA GOVEA MD [Staff Physician] - 14 Days Prescriptions: oxyCODONE /ACETAMINOPHEN [Percocet 5/325 mg] 1 tab PO Q6H PRN #14 tablet PRN Reason: Pain, Moderate (4-6)
[2017-10-07] MEDS: LOVENOX SUB-Q SCH (10:08)
[2017-10-07] MEDS: PEPCID IV SCH (10:08)
[2017-10-07] MEDS: AMARYL PO SCH (10:10)
--- NOTE | 2017-10-07 18:14 | Progress Note ---
Assessment and Plan Assessment and plan: 10-year-old female was admitted to the floor after the patient for and has fracture of right hip ORIF was done by orthopedic surgeon. Tolerated the procedure well. PT recommended home physical therapy. patient mild anemia, will follow H/H. DVT prophylaxis Disposition - Possible discharge tomorrow History Interval history: Patient was seen and evaluated, patient is weak has difficulty of going to the bathroom Hospitalist Physical - Physical exam Narrative exam: Not in cardiopulmonary distress. The patient appeared well nourished and normally developed. Vital signs as documented. Head exam is unremarkable. No scleral icterus . Neck is without jugular venous distension, thyromegaly, or carotid bruits. Lungs are clear to auscultation. Cardiac exam reveals regular rate and Rhythm. First and second heart sounds normal. No murmurs, rubs or gallops. Abdominal exam reveals normal bowel sounds, no masses, no organomegaly and no aortic enlargement. Extremities are nonedematous and both femoral and pedal pulses are normal. MOLD FORMS BUILDER: Alert and oriented 3. No focal weakness. - Constitutional Vitals: Temp Pulse Resp BP Pulse Ox 99.2 F 79 20 118/47 100 10/07/17 15:49 10/07/17 15:49 10/07/17 15:49 10/07/17 15:49 10/07/17 15:49 General appearance: Present: no acute distress, well-nourished Results - Labs CBC & Chem 7: 10/07/17 06:05 10/07/17 06:05 Labs: Laboratory Last Values WBC 7.8 K/mm3 (4.5-11.0) 10/07/17 06:05 RBC 2.71 M/mm3 (3.65-5.03) L 10/07/17 06:05 Hgb 8.7 gm/dl (10.1-14.3) L 10/07/17 06:05 Hct 25.5 % (30.3-42.9) L D 10/07/17 06:05 MCV 94 fl (79-97) 10/07/17 06:05 MCH 32 pg (28-32) 10/07/17 06:05 MCHC 34 % (30-34) 10/07/17 06:05 RDW 13.6 % (13.2-15.2) 10/07/17 06:05 Plt Count 170 K/mm3 (140-440) 10/07/17 06:05 Lymph % (Auto) 29.5 % (13.4-35.0) 10/07/17 06:05 [place] % (Auto) 10.7 % (0.0-7.3) H 10/07/17 06:05 Eos % (Auto) 0.6 % (0.0-4.3) 10/07/17 06:05 Baso % (Auto) 0.5 % (0.0-1.8) 10/07/17 06:05 Lymph # 2.3 K/mm3 (1.2-5.4) 10/07/17 06:05 [place] # 0.8 K/mm3 (0.0-0.8) 10/07/17 06:05 Eos # 0.0 K/mm3 (0.0-0.4) 10/07/17 06:05 Baso # 0.0 K/mm3 (0.0-0.1) 10/07/17 06:05 Seg Neutrophils % 58.7 % (40.0-70.0) 10/07/17 06:05 Seg Neutrophils # 4.6 K/mm3 (1.8-7.7) 10/07/17 06:05 PT 14.1 Sec. (12.2-14.9) 10/04/17 11:39 INR 1.04 (0.87-1.13) 10/04/17 11:39 APTT 25.1 Sec. (24.2-36.6) 10/04/17 11:39 Sodium 136 mmol/L (137-145) L 10/07/17 06:05 Potassium 3.7 mmol/L (3.6-5.0) 10/07/17 06:05 Chloride 102.2 mmol/L (98-107) 10/07/17 06:05 Carbon Dioxide 21 mmol/L (22-30) L 10/07/17 06:05 Anion Gap 17 mmol/L 10/07/17 06:05 BUN 10 mg/dL (7-17) 10/07/17 06:05 Creatinine 0.5 mg/dL (0.7-1.2) L 10/07/17 06:05 Estimated GFR > 60 ml/min 10/07/17 06:05 BUN/Creatinine Ratio 20 % 10/07/17 06:05 Glucose 151 mg/dL (65-100) H 10/07/17 06:05 POC Glucose 310 (70-105) H 10/07/17 16:44 Hemoglobin A1c 8.0 % (4-6) H 10/04/17 11:39 Calcium 7.0 mg/dL (8.4-10.2) L 10/07/17 06:05 Total Bilirubin 0.50 mg/dL (0.1-1.2) 10/05/17 16:40 Direct Bilirubin 0.2 mg/dL (0-0.2) 10/04/17 11:39 Indirect Bilirubin 0.7 mg/dL 10/04/17 11:39 AST 21 units/L (5-40) 10/05/17 16:40 ALT 10 units/L (7-56) 10/05/17 16:40 Alkaline Phosphatase 49 units/L (35-129) 10/05/17 16:40 NT-Pro-B Natriuret Pep 84.05 pg/mL (0-900) 10/04/17 11:39 Total Protein 6.0 g/dL (6.3-8.2) L 10/05/17 16:40 Albumin 3.3 g/dL (3.9-5) L 10/05/17 16:40 Albumin/Globulin Ratio 1.2 % 10/05/17 16:40 Urine Color Yellow (Yellow) 10/04/17 15:08 Urine Turbidity Clear (Clear) 10/04/17 15:08 Urine pH 7.0 (5.0-7.0) 10/04/17 15:08 Ur Specific [place] 1.009 (1.003-1.030) 10/04/17 15:08 Urine Protein <15 mg/dl mg/dL (Negative) 10/04/17 15:08 Urine Glucose (UA) 150 mg/dL (Negative) 10/04/17 15:08 Urine Ketones 20 mg/dL (Negative) 10/04/17 15:08 Urine Blood Sm (Negative) 10/04/17 15:08 Urine Nitrite Neg (Negative) 10/04/17 15:08 Urine Bilirubin Neg (Negative) 10/04/17 15:08 Urine Urobilinogen < 2.0 mg/dL (<2.0) 10/04/17 15:08 Ur Leukocyte Esterase Tr (Negative) 10/04/17 15:08 Urine WBC (Auto) < 1.0 /HPF (0.0-6.0) 10/04/17 15:08 Urine RBC (Auto) 1.0 /HPF (0.0-6.0) 10/04/17 15:08 Blood Type A POSITIVE 10/04/17 11:39 Antibody Screen Negative 10/04/17 11:39
[2017-10-08 05:02] LABS: BUN/Creatinine Ratio 18; Blood Urea Nitrogen 9 mg/dL (7-17); Calcium 7.8 mg/dL (8.4-10.2); Hemolysis Index 3
[2017-10-08 05:21] LABS: Basophils % (Auto) 0.5 % (0.0-1.8); Eosinophils # (Auto) 0.1 K/mm3 (0.0-0.4); Eosinophils % (Auto) 1.6 % (0.0-4.3); Hematocrit 24.5 % (30.3-42.9); Hemoglobin 8.6 gm/dl (10.1-14.3); Lymphocytes # (Auto) 2.9 K/mm3 (1.2-5.4); Lymphocytes % (Auto) 33.7 % (13.4-35.0); Mean Corpuscular HGB Conc 35 % (30-34); Mean Corpuscular Hemoglobin 33 pg (28-32); Mean Corpuscular Volume 94 fl (79-97); Monocytes # (Auto) 0.8 K/mm3 (0.0-0.8); Monocytes % (Auto) 9.4 % (0.0-7.3); Platelet Count 207 K/mm3 (140-440); Red Blood Count 2.62 M/mm3 (3.65-5.03); Red Cell Distribution Width 13.3 % (13.2-15.2)
[2017-10-08] MEDS: HumaLOG SUB-Q SCH ×2 (08:30→11:58)
[2017-10-08] MEDS: AMARYL PO SCH (08:31)
[2017-10-08] MEDS: LOVENOX SUB-Q SCH ×2 (08:35→09:59)
[2017-10-08] MEDS: PEPCID IV SCH ×2 (08:36→10:00)
[2017-10-08] MEDS: SODIUM CHLORIDE FLUSH SYRINGE 10 ML IV SCH ×3 (08:37→10:02)
[2017-10-08 11:38] VITALS: BP 133/60
--- NOTE | 2017-10-08 12:05 | Discharge Summary ---
Providers - Providers Date of Admission: 10/04/17 12:24 Date of discharge: 10/08/17 Attending physician: VASU TAVAREZ MD 10/04/17 Consult to Case Management [CONS] Routine Services Needed at Discharge: Home Health Services Physical Therapy Notified:: WATCH INSPECTOR 10/04/17 12:21 Consult to Physician [CONS] Urgent Comment: Consulting Provider: MONICA GOVEA Physician Instructions: Reason For Exam: R intertrochanteric hip 10/05/17 14:31 Physical Therapy Evaluation and Treat [CONS] Routine Comment: Reason For Exam: post op evaluation Weight bearing status?: Partial wt bearing Assistive devices?: Yes If so list: Walker 10/06/17 15:00 Consult to Dietitian/Nutrition [CONS] Routine Physician Instructions: Reason For Exam: Reason for Consult: Malnutrition Primary care physician: RECREATIONAL SPORTS DIRECTOR Hospitalization Reason for admission: Right hip fracture Condition: Stable Pertinent studies: x-ray of the Hip: fracture of the right hip Disposition: [id number] HOME UNDER HOME [facility] Time spent for discharge: 31 minutes - Discharge Diagnoses (1) Diabetes mellitus Status: Acute Qualifiers: Diabetes mellitus type: type 2 Diabetes mellitus alf insulin use: without long term care social worker use Diabetes mellitus complication status: without complication Qualified Code(s): E11.9 - Type 2 diabetes mellitus without complications (2) Intertrochanteric fracture of right hip Status: Acute Qualifiers: Encounter type: initial encounter Fracture type: closed Fracture alignment: displaced Qualified Code(s): S72.141A - Displaced intertrochanteric fracture of right femur, initial encounter for closed fracture Core Measure Documentation - Palliative Care Palliative Care/ Comfort Measures: Not Applicable - Core Measures Any of the following diagnoses?: none Exam - Physical Exam Narrative exam: Not in cardiopulmonary distress. The patient appeared well nourished and normally developed. Vital signs as documented. Head exam is unremarkable. No scleral icterus . Neck is without jugular venous distension, thyromegaly, or carotid bruits. Lungs are clear to auscultation. Cardiac exam reveals regular rate and Rhythm. First and second heart sounds normal. No murmurs, rubs or gallops. Abdominal exam reveals normal bowel sounds, no masses, no organomegaly and no aortic enlargement. Extremities are nonedematous and both femoral and pedal pulses are normal. SUPER[employer]OR [employer]: Alert and oriented 3. No focal weakness. - Constitutional Vitals: Temp Pulse Resp BP Pulse Ox 98.3 F 80 18 133/60 99 10/08/17 11:24 10/08/17 11:24 10/08/17 11:24 10/08/17 11:24 10/08/17 11:24 Plan Activity: advance as tolerated Weight Bearing Status: Weight Bear as Tolerated Diet: diabetic Follow up with: PRIMARY MD NICKY [Primary Care Provider] - 3-5 Days MONICA GOVEA MD [Staff Physician] - 14 Days Prescriptions: oxyCODONE /ACETAMINOPHEN [Percocet 5/325 mg] 1 tab PO Q6H PRN #14 tablet PRN Reason: Pain, Moderate (4-6)
== END 2017-10-08 15:51 | disposition home health service (06) | DRG 481 ==
LOC: ED 10:31 → 3B-SURG 12:24
PROVIDERS: ADMIT Internal Medicine; ATTEND Internal Medicine
PROC: 0QS606Z Reposition Right Upper Femur with Intramedullary Internal Fixation Device, Open Approach (ICD-10-PCS; principal; 2017-10-05)
DX: S72.141A Displaced intertrochanteric fracture of right femur, initial encounter for closed fracture (principal); E87.1 Hypo-osmolality and hyponatremia; E87.5 Hyperkalemia; W18.39XA Other fall on same level, initial encounter; Y93.89 Activity, other specified; Y92.009 Unspecified place in unspecified non-institutional (private) residence as the place of occurrence of the external cause; E11.9 Type 2 diabetes mellitus without complications; D64.9 Anemia, unspecified
CPT/HCPCS: 36415; 71045; 80048; 80053; 80074; 81001; 82962; 83036; 83880; 85025; 85610; 85730; 86850; 86900; 86901; 93005; 93010; 94760; C1713; C1769; J0360; J0690; J1170; J1650; J1815; J1885; J2270; J2405; J2704; J2710; J2765; J3010; J7030

== ENCOUNTER 2017-11-11 11:29 | Outpatient (CLI) | payer MEDICAID ==
--- NOTE | 2017-11-11 12:58 | XRay Report ---
Right femur 2 views: History: Pain in right hip. Findings: There is internal fixation noted of the intertrochanteric fracture with entrapment there are and hip pain. Stable hardware. Normal hip joint. No soft tissue abnormality. Impression: Stable internal fixation. Intertrochanteric fracture line not visualized.
--- NOTE | 2017-11-11 12:59 | XRay Report ---
Right hip 2 views: History: Pain in right hip. Findings: The internal fixation noted of intertrochanteric fracture right hip with intramedullary yakov and hip pain. Articulation of the vagina appears normal. No evidence of fracture. Impression stable internal fixation no new fracture
== END 2017-11-11 11:30 | disposition home or self-care (01) ==
LOC: XRAY 11:29
PROVIDERS: ATTEND Orthopaedic Surgery
DX: M25.551 Pain in right hip (principal); S72.141D Displaced intertrochanteric fracture of right femur, subsequent encounter for closed fracture with routine healing; X58.XXXD Exposure to other specified factors, subsequent encounter